=== PATIENT | female | born 1990 | race Caucasian/White ===

== ENCOUNTER 2018-07-10 18:52 | Emergency (ER) | payer OTHER ==
[~2018-07-10] VITALS: Ht 160 cm; Wt 53.5 kg
[2018-07-10] MEDS ORDERED: BIRTH CONTROL PO (19:12)
== END 2018-07-10 20:10 | disposition home or self-care (01) ==
LOC: ED 18:52
PROC: 0HQGXZZ Repair Left Hand Skin, External Approach (ICD-10-PCS; principal; 2018-07-10)
DX: S61.412A Laceration without foreign body of left hand, initial encounter (principal); W26.0XXA Contact with knife, initial encounter
CPT/HCPCS: 12001; 99282

== ENCOUNTER 2018-12-10 18:25 | Emergency (ER) | payer OTHER ==
[~2018-12-10] VITALS: Ht 160 cm; Wt 53.5 kg
[~2018-12-10 18:25] MED LIST: BIRTH CONTROL PO
[2018-12-10] MEDS ORDERED: KEFLEX500 MG PO (20:34)
== END 2018-12-10 20:41 | disposition home or self-care (01) ==
LOC: ED 18:25
DX: L03.032 Cellulitis of left toe (principal)
CPT/HCPCS: 99283

== ENCOUNTER 2024-09-04 08:22 | Emergency (ER) | payer OTHER ==
[~2024-09-04] VITALS: Ht 160 cm; Wt 58.5 kg
[~2024-09-04 08:22] MED LIST changes: +KEFLEX500 MG PO
[2024-09-04] MEDS ORDERED: LIDOCAINE/RACEPINEP/TETRACAINE 3 ML SYR TOP ONE (08:45)
[2024-09-04] MEDS ORDERED: CEPHALEXIN500 M1 PO (09:19)
[2024-09-04 09:24] VITALS: BP 117/76
== END 2024-09-04 09:25 | disposition home or self-care (01) ==
LOC: ED 08:22
DX: L02.215 Cutaneous abscess of perineum (principal)
CPT/HCPCS: 56405; 99282-25